=== PATIENT | male | born 1965 | race Caucasian/White ===

== ENCOUNTER 2020-12-06 13:40 | Inpatient (IN) | payer OTHER ==
[2020-12-06] MEDS ORDERED: SODIUM CHLORIDE 1,000 ML IV STA (14:11)
[2020-12-06 15:07] LABS: BASO % 1.4 % (0-2.0); EOS % 5.7 % (0-4.5); HEMATOCRIT 41.5 % (35.4-49); HEMOGLOBIN 14.4 GM/dL (11.7-16.9); LYMPH % 52.6 % (8-40); MCH 35.2 pg (25.7-33.7); MCHC 34.7 g/dl (32.0-35.9); MEAN CELL VOLUME 101.5 fl (80-96); MEAN PLT VOLUME 8.3 fl (7.5-11.1); MONO % 6.1 % (3.8-10.2); NEUT % 34.2 % (42.8-82.8); PLATELET COUNT 307 10^3/uL (134-434); RBC 4.09 M/mm3 (4.00-5.60); RDW 16.1 % (11.9-15.9); WHITE BLOOD COUNT 8.5 K/mm3 (4.0-10.0)
[2020-12-06 15:16] LABS: INR 0.96 (0.83-1.09); PROTHROMBIN TIME (PATIENT) 11.2 SEC (9.7-13.0)
[2020-12-06 15:18] LABS: ACTIVATED PTT 28.4 SECONDS (25.2-36.5)
[2020-12-06 15:24] LABS: CHLORIDE 107 mmol/L (98-107); SODIUM 143 mmol/L (136-145)
[2020-12-06 15:27] LABS: ALBUMIN 2.9 g/dl (3.4-5.0); ANION GAP 11 MMOL/L (8-16); BLOOD UREA NITROGEN 8.8 mg/dL (7-18); CALCIUM 8.9 mg/dL (8.5-10.1); CO2 25 mmol/L (21-32); GLUCOSE,RANDOM 145 mg/dL (74-106)
[2020-12-06 15:30] LABS: SGOT/AST 17 U/L (15-37); SGPT/ALT 23 U/L (13-61)
[2020-12-06 15:31] LABS: CREATININE 0.7 mg/dL (0.55-1.3)
[2020-12-06 15:32] LABS: BILIRUBIN,TOTAL 0.3 mg/dL (0.2-1); TOT PROT 7.1 g/dl (6.4-8.2)
[2020-12-06 15:33] LABS: ALK PHOS 119 U/L (45-117)
[2020-12-06] MEDS ORDERED: LORazepam 2 MG TABLET PO ONE (17:52)
[2020-12-06] MEDS ORDERED: LORazepam 1 MG TABLET ONE (17:59)
[2020-12-06] MEDS ORDERED: FOLIC ACID INJECTION - 1 MG, THIAMINE HCL 200 MG, MULTIVIT INJECTION ADULT 10 ML in SOD... IVPB ONE (19:36)
[2020-12-06] MEDS ORDERED: LORazepam 2 MG/ML SDV VIAL IVPUSH ONE (20:30)
[2020-12-06] MEDS ORDERED: LORazepam 2 MG/ML SDV VIAL ONE (21:07)
[2020-12-06] MEDS: INSULIN SLIDING SCALE (NOVOLOG) 1 VIAL SQ SCH (22:10)
[2020-12-06 23:33] LABS: URINE APPEARANCE CLEAR; URINE BILIRUBIN NEGATIVE (NEGATIVE); URINE COLOR YELLOW; URINE GLUCOSE (UA) TRACE (NEGATIVE); URINE KETONE NEGATIVE (NEGATIVE); URINE LEUK ESTERASE NEGATIVE (NEGATIVE); URINE NITRITE NEGATIVE (NEGATIVE); URINE PROTEIN NEGATIVE (NEGATIVE)
[2020-12-06 23:40] LABS: URINE AMPHETAMINES NEGATIVE (NEGATIVE); URINE BARBITURATES NEGATIVE (NEGATIVE)
[2020-12-06 23:41] LABS: COCAINE, UR NEGATIVE (NEGATIVE); METHADONE, UR NEGATIVE (NEGATIVE); PHENCYCLIDINE,URINE NEGATIVE (NEGATIVE)
[2020-12-06 23:45] LABS: OPIATES, URI NEGATIVE (NEGATIVE); URINE BENZODIAZEPINES POSITIVE (NEGATIVE)
[2020-12-07] MEDS ORDERED: LORazepam 2 MG/ML SDV VIAL ONE (00:30)
[2020-12-07] MEDS: LORazepam 2 MG/ML SDV VIAL IVPUSH PRN ×3 (00:33→10:11)
[2020-12-07 02:36] VITALS: BMI 27.4
[2020-12-07] MEDS: INSULIN SLIDING SCALE (NOVOLOG) 1 VIAL SQ SCH ×4 (06:09→21:23)
[2020-12-07 08:41] LABS: HEMATOCRIT 35.5 % (35.4-49); HEMOGLOBIN 12.5 GM/dL (11.7-16.9); MCH 35.6 pg (25.7-33.7); MCHC 35.2 g/dl (32.0-35.9); MEAN CELL VOLUME 101.3 fl (80-96); MEAN PLT VOLUME 8.7 fl (7.5-11.1); PLATELET COUNT 236 10^3/uL (134-434); RDW 16.3 % (11.9-15.9); WHITE BLOOD COUNT 7.5 K/mm3 (4.0-10.0)
[2020-12-07] MEDS ORDERED: PT OWN MED DRAWER 7, Y5N ONE (09:11)
[2020-12-07 09:12] LABS: ALBUMIN 2.5 g/dl (3.4-5.0)
[2020-12-07] MEDS: PANTOPRAZOLE 40 MG TABLET PO SCH (09:12)
[2020-12-07] MEDS: ENOXAPARIN NA (PORCINE) 40 MG/0.4 ML DISP.SYRIN SQ SCH (09:12)
[2020-12-07] MEDS: NICOTINE 14 MG/24 HOURS TOPICAL PATCH TD SCH (09:12)
[2020-12-07] MEDS: FOLIC ACID 1 MG TABLET (FP) PO SCH (09:12)
[2020-12-07] MEDS: THIAMINE HCL 100 MG TABLET (FP) PO SCH ×2 (09:12→21:09)
[2020-12-07] MEDS: ASPIRIN COATED 81 MG TABLET.EC PO SCH (09:12)
[2020-12-07 09:13] LABS: BLOOD UREA NITROGEN 10.3 mg/dL (7-18); CALCIUM 8.3 mg/dL (8.5-10.1); MAGNESIUM 1.3 mg/dL (1.8-2.4)
[2020-12-07] MEDS: LISINOPRIL 10 MG TABLET PO SCH (09:13)
[2020-12-07 09:16] LABS: CREATININE 0.7 mg/dL (0.55-1.3); PHOSPHOROUS 3.4 mg/dL (2.5-4.9)
[2020-12-07 09:17] LABS: BILIRUBIN,TOTAL 0.7 mg/dL (0.2-1); TOT PROT 5.9 g/dl (6.4-8.2)
[2020-12-07] MEDS ORDERED: MAGNESIUM SULF 50% (8.12 MEQ/2 ML-1 GM VIAL) IVPB ONE (09:31)
[2020-12-07] MEDS ORDERED: CHLORTHALIDONE 25 MG TABLET PO SCH (10:00)
[2020-12-07] MEDS ORDERED: chlordiazePOXIDE HCL 25 MG CAPSULE PO SCH (11:00)
[2020-12-07] MEDS ORDERED: chlordiazePOXIDE HCL 25 MG CAPSULE PO PRN (11:39)
[2020-12-07] MEDS ORDERED: LORazepam 1 MG TABLET PO PRN (12:04)
[2020-12-07] MEDS: LORazepam 1 MG TABLET PO SCH ×3 (13:00→22:09)
[2020-12-07] MEDS ORDERED: MELATONIN 5 MG TABLETS PO PRN (19:40)
[2020-12-07] MEDS: MAGNESIUM OXIDE 400 MG TABLET (FP) PO SCH (21:08)
[2020-12-08] MEDS: LORazepam 1 MG TABLET PO SCH (04:45)
[2020-12-08] MEDS: INSULIN SLIDING SCALE (NOVOLOG) 1 VIAL SQ SCH (06:03)
[2020-12-08 08:39] LABS: BASO % 1.8 % (0-2.0); EOS % 7.1 % (0-4.5); HEMATOCRIT 38.8 % (35.4-49); HEMOGLOBIN 13.5 GM/dL (11.7-16.9); LYMPH % 30.7 % (8-40); MCHC 34.9 g/dl (32.0-35.9); MEAN CELL VOLUME 100.3 fl (80-96); MEAN PLT VOLUME 8.4 fl (7.5-11.1); MONO % 7.9 % (3.8-10.2); NEUT % 52.5 % (42.8-82.8); PLATELET COUNT 237 10^3/uL (134-434); RBC 3.87 M/mm3 (4.00-5.60); RDW 16.4 % (11.9-15.9); WHITE BLOOD COUNT 7.2 K/mm3 (4.0-10.0)
[2020-12-08] MEDS: MAGNESIUM OXIDE 400 MG TABLET (FP) PO SCH (09:06)
[2020-12-08] MEDS: NICOTINE 14 MG/24 HOURS TOPICAL PATCH TD SCH (09:06)
[2020-12-08] MEDS: FOLIC ACID 1 MG TABLET (FP) PO SCH (09:06)
[2020-12-08] MEDS: ASPIRIN COATED 81 MG TABLET.EC PO SCH (09:06)
[2020-12-08] MEDS: THIAMINE HCL 100 MG TABLET (FP) PO SCH (09:06)
[2020-12-08] MEDS: PANTOPRAZOLE 40 MG TABLET PO SCH (09:06)
[2020-12-08] MEDS: ENOXAPARIN NA (PORCINE) 40 MG/0.4 ML DISP.SYRIN SQ SCH (09:06)
[2020-12-08] MEDS: LISINOPRIL 10 MG TABLET PO SCH (09:07)
[2020-12-08 09:09] VITALS: BP 120/85; PULSE 97; TEMP 98
[2020-12-08 09:19] LABS: BLOOD UREA NITROGEN 9.3 mg/dL (7-18)
[2020-12-08 09:20] LABS: MAGNESIUM 1.9 mg/dL (1.8-2.4)
[2020-12-08 09:21] LABS: PHOSPHOROUS 4.3 mg/dL (2.5-4.9)
[2020-12-08 09:22] LABS: CREATININE 0.7 mg/dL (0.55-1.3)
[2020-12-08 09:23] LABS: BILIRUBIN,TOTAL 1.1 mg/dL (0.2-1); TOT PROT 6.9 g/dl (6.4-8.2)
[2020-12-09] MEDS ORDERED: chlordiazePOXIDE HCL 25 MG CAPSULE PO SCH (05:00)
[2020-12-09] MEDS ORDERED: LORazepam 1 MG TABLET PO SCH (05:00)
[2020-12-10] MEDS ORDERED: LORazepam 0.5 MG TABLET PO PRN
[2020-12-10] MEDS ORDERED: chlordiazePOXIDE HCL 10 MG CAPSULE PO PRN
[2020-12-10] MEDS ORDERED: chlordiazePOXIDE HCL 10 MG CAPSULE PO SCH (05:00)
[2020-12-10] MEDS ORDERED: LORazepam 0.5 MG TABLET PO SCH (05:00)
[2020-12-11] MEDS ORDERED: chlordiazePOXIDE HCL 10 MG CAPSULE PO SCH (05:00)
[2020-12-11] MEDS ORDERED: LORazepam 0.5 MG TABLET PO ONE (05:00)
[2020-12-12] MEDS ORDERED: chlordiazePOXIDE HCL 10 MG CAPSULE PO ONE (05:00)
== END 2020-12-08 12:21 | disposition short-term general hospital (02) | DRG 775 ==
LOC: JER 13:40 → JERBED 16:57 → J6S 12-07 00:58
PROVIDERS: ATTEND Student in an Organized Health Care Education/Training Program
PROC: HZ2ZZZZ Detoxification Services for Substance Abuse Treatment (ICD-10-PCS; principal; 2020-12-06)
DX: F10.239 Alcohol dependence with withdrawal, unspecified (principal); I25.10 Atherosclerotic heart disease of native coronary artery without angina pectoris; E11.9 Type 2 diabetes mellitus without complications; E78.5 Hyperlipidemia, unspecified; F12.90 Cannabis use, unspecified, uncomplicated; F17.200 Nicotine dependence, unspecified, uncomplicated; R07.89 Other chest pain; M54.2 Cervicalgia; S09.90XA Unspecified injury of head, initial encounter; M54.9 Dorsalgia, unspecified; E66.9 Obesity, unspecified; Z68.27 Body mass index [BMI] 27.0-27.9, adult; I10 Essential (primary) hypertension; Z95.5 Presence of coronary angioplasty implant and graft; W18.39XA Other fall on same level, initial encounter; Y92.89 Other specified places as the place of occurrence of the external cause; Y99.8 Other external cause status
CPT/HCPCS: 36415; 70450-TC; 71045-TC-FY; 72125-TC; 80053; 80061; 80307; 81003; 82140; 82550; 82962; 83735; 84100; 84443; 84484; 85025; 85027; 85610; 85730; 86850; 86900; 86901; 93005; 93010; 93306-TC; 99285-25; C9803; U0003; U0005

== ENCOUNTER 2020-12-08 11:51 | Inpatient (IN) | payer OTHER ==
[2020-12-08] MEDS ORDERED: ONDANSETRON *ODT* 4 MG TABLET SL PRN (12:32)
[2020-12-08] MEDS ORDERED: MAG HYDROX/AL HYDROX/SIMETH 30 ML UNIT-DOSE CUP PO PRN (12:32)
[2020-12-08] MEDS ORDERED: MAGNESIUM CITRATE 300 ML BOTTLE PO PRN (12:32)
[2020-12-08] MEDS ORDERED: MENTHOL/PHENOL 1 EACH UD MM PRN (12:32)
[2020-12-08] MEDS ORDERED: METHOCARBAMOL 500 MG TABLET PO PRN (12:32)
[2020-12-08] MEDS ORDERED: ACETAMINOPHEN 325 MG TABLET (FP) PO PRN ×2 (12:32)
[2020-12-08] MEDS ORDERED: NICOTINE 10 MG CARTRIDGE (INHALER) IH PRN (12:32)
[2020-12-08] MEDS ORDERED: IBUPROFEN 400 MG TABLET (FP) PO PRN (12:32)
[2020-12-08] MEDS ORDERED: BISMUTH SUBSALICYLATE 262 MG/15 ML BTL PO PRN (12:32)
[2020-12-08] MEDS ORDERED: MAGNESIUM HYDROX 2400MG/30ML ORAL SUSPENSION 30 ML CUP PO PRN (12:32)
[2020-12-08 13:10] VITALS: BMI 27.2
[2020-12-08] MEDS: LORazepam 1 MG TABLET PO PRN ×2 (13:30→20:09)
[2020-12-08] MEDS: hydrOXYzine PAMOATE 25 MG CAPSULE (FP) PO SCH ×3 (15:50→22:16)
[2020-12-08] MEDS: PRENATAL VITAMINS W/ FOLIC ACID TABLET (FP) PO SCH (15:50)
[2020-12-08] MEDS: metFORMIN HCL 500 MG TABLET (FP) PO SCH (17:30)
[2020-12-08] MEDS: LORazepam 2 MG TABLET PO SCH ×2 (17:30→22:16)
[2020-12-08] MEDS: MELATONIN 5 MG TABLETS PO SCH (22:16)
[2020-12-08] MEDS: THIAMINE HCL 100 MG TABLET (FP) PO SCH (22:16)
[2020-12-09] MEDS: LORazepam 2 MG TABLET PO SCH ×2 (05:32→10:38)
[2020-12-09] MEDS: hydrOXYzine PAMOATE 25 MG CAPSULE (FP) PO SCH ×5 (05:32→21:55)
[2020-12-09] MEDS: metFORMIN HCL 500 MG TABLET (FP) PO SCH ×2 (06:08→17:25)
[2020-12-09] MEDS ORDERED: ASPIRIN COATED 81 MG TABLET.EC PO SCH (10:00)
[2020-12-09] MEDS ORDERED: metoPROLOL SUCCINATE 25 MG TAB.SR.24H (FP) PO SCH (10:00)
[2020-12-09] MEDS ORDERED: LISINOPRIL 10 MG TABLET PO SCH (10:00)
[2020-12-09] MEDS: PRENATAL VITAMINS W/ FOLIC ACID TABLET (FP) PO SCH (10:39)
[2020-12-09] MEDS ORDERED: LORazepam 0.5 MG TABLET PO PRN (11:00)
[2020-12-09] MEDS: LORazepam 0.5 MG TABLET PO SCH ×3 (11:15→22:04)
[2020-12-09 12:04] LABS: HEMATOCRIT 39.1 % (35.4-49); HEMOGLOBIN 13.5 GM/dL (11.7-16.9); MCH 35.4 pg (25.7-33.7); MCHC 34.6 g/dl (32.0-35.9); MEAN CELL VOLUME 102.5 fl (80-96); MEAN PLT VOLUME 8.9 fl (7.5-11.1); PLATELET COUNT 246 10^3/uL (134-434); RBC 3.81 M/mm3 (4.00-5.60); RDW 16.4 % (11.9-15.9)
[2020-12-09 12:28] LABS: ALBUMIN 3.3 g/dl (3.4-5.0)
[2020-12-09 12:29] LABS: BLOOD UREA NITROGEN 16.5 mg/dL (7-18); CALCIUM 9.1 mg/dL (8.5-10.1)
[2020-12-09 12:32] LABS: CREATININE 0.9 mg/dL (0.55-1.3)
[2020-12-09 12:33] LABS: BILIRUBIN,TOTAL 0.8 mg/dL (0.2-1); TOT PROT 7.3 g/dl (6.4-8.2)
[2020-12-09] MEDS: MELATONIN 5 MG TABLETS PO SCH (21:55)
[2020-12-09] MEDS: THIAMINE HCL 100 MG TABLET (FP) PO SCH (21:55)
[2020-12-10] MEDS ORDERED: LORazepam 1 MG TABLET PO SCH (05:00)
[2020-12-10] MEDS ORDERED: LORazepam 0.5 MG TABLET PO ONE (05:00)
[2020-12-10] MEDS: metFORMIN HCL 500 MG TABLET (FP) PO SCH (06:29)
[2020-12-10] MEDS: hydrOXYzine PAMOATE 25 MG CAPSULE (FP) PO SCH (06:29)
[2020-12-10 09:51] VITALS: BP 112/85; PULSE 105; TEMP 97.1
[2020-12-11] MEDS ORDERED: LORazepam 0.5 MG TABLET PO PRN
[2020-12-11] MEDS ORDERED: LORazepam 0.5 MG TABLET PO SCH (05:00)
[2020-12-12] MEDS ORDERED: LORazepam 0.5 MG TABLET PO ONE (05:00)
== END 2020-12-10 09:46 | disposition home or self-care (01) | DRG 775 ==
LOC: YASAS 11:51 → Y3N 13:15
PROVIDERS: ADMIT Allergy & Immunology; ATTEND Allergy & Immunology
PROC: HZ2ZZZZ Detoxification Services for Substance Abuse Treatment (ICD-10-PCS; principal; 2020-12-08)
DX: F10.230 Alcohol dependence with withdrawal, uncomplicated (principal); F17.210 Nicotine dependence, cigarettes, uncomplicated; I25.10 Atherosclerotic heart disease of native coronary artery without angina pectoris; I10 Essential (primary) hypertension; Z95.5 Presence of coronary angioplasty implant and graft; E11.9 Type 2 diabetes mellitus without complications; E78.5 Hyperlipidemia, unspecified; Z79.84 Long term (current) use of oral hypoglycemic drugs
CPT/HCPCS: 36415; 80053; 82962; 85027; 86780

== ENCOUNTER 2022-03-19 20:23 | Inpatient (IN) | payer OTHER ==
[2022-03-19 21:20] VITALS: BMI 30.8
[2022-03-19] MEDS ORDERED: LORazepam 2 MG/ML SDV VIAL IM ONE (21:23)
[2022-03-19] MEDS ORDERED: METOPROLOL TARTRATE 50 MG TABLET (FP) PO ONE (21:23)
[2022-03-19] MEDS ORDERED: IBUPROFEN 400 MG TABLET (FP) PO PRN (21:26)
[2022-03-19] MEDS ORDERED: DICYCLOMINE HCL 10 MG CAPSULE PO PRN (21:26)
[2022-03-19] MEDS ORDERED: METHOCARBAMOL 500 MG TABLET PO PRN (21:26)
[2022-03-19] MEDS ORDERED: LOPERAMIDE HCL 2 MG CAPSULE PO PRN (21:26)
[2022-03-19] MEDS ORDERED: MAGNESIUM HYDROX 2400MG/30ML ORAL SUSPENSION 30 ML CUP PO PRN (21:26)
[2022-03-19] MEDS ORDERED: NICOTINE POLACRILEX 2 MG GUM BUC PRN (21:26)
[2022-03-19] MEDS ORDERED: BISMUTH SUBSALICYLATE 524 MG/30 ML PO PRN (21:26)
[2022-03-19] MEDS ORDERED: IBUPROFEN 600 MG TABLET (FP) PO PRN (21:26)
[2022-03-19] MEDS ORDERED: ONDANSETRON *ODT* 4 MG TABLET SL PRN (21:26)
[2022-03-19] MEDS ORDERED: ACETAMINOPHEN 325 MG TABLET (FP) PO PRN ×2 (21:26)
[2022-03-19] MEDS ORDERED: POLYETHYLENE GLYCOL (HEALTHYLAX) 3350 17 GM PACKET PO PRN (21:26)
[2022-03-19] MEDS ORDERED: BENZOCAINE/MENTHOL (CHLORASEPTIC ) LOZENGE MM PRN (21:26)
[2022-03-19] MEDS ORDERED: MAG HYDROX/AL HYDROX/SIMETH 30 ML UNIT-DOSE CUP PO PRN (21:26)
[2022-03-19] MEDS ORDERED: guaiFENesin 200 MG/10 ML 10 ML UNIT-DOSE CUPS PO PRN (21:26)
[2022-03-19] MEDS ORDERED: P-EPHED 60MG/TRIPROLIDI 2.5MG TABLET PO PRN (21:26)
[2022-03-19] MEDS ORDERED: chlordiazePOXIDE HCL 25 MG CAPSULE PO ONE (21:29)
[2022-03-19] MEDS ORDERED: chlordiazePOXIDE HCL 25 MG CAPSULE PO PRN (21:29)
[2022-03-19] MEDS ORDERED: METOPROLOL TARTRATE 25 MG TABLET (FP) PO ONE (21:30)
[2022-03-19] MEDS ORDERED: METOPROLOL TARTRATE 25 MG TABLET (FP) ONE (21:31)
[2022-03-19] MEDS: levETIRAcetam 500 MG TABLET (FP) PO SCH (23:11)
[2022-03-20] MEDS: MELATONIN 5 MG TABLETS PO SCH ×2 (00:29→22:28)
[2022-03-20] MEDS: THIAMINE HCL 100 MG TABLET (FP) PO SCH ×2 (00:29→22:29)
[2022-03-20] MEDS: chlordiazePOXIDE HCL 25 MG CAPSULE PO SCH ×5 (00:49→22:29)
[2022-03-20] MEDS: hydrOXYzine PAMOATE 25 MG CAPSULE (FP) PO PRN ×2 (01:25→22:31)
[2022-03-20] MEDS: ASPIRIN COATED 81 MG TABLET.EC PO SCH (10:42)
[2022-03-20] MEDS: PRENATAL VITAMINS W/ FOLIC ACID TABLET (FP) PO SCH (10:42)
[2022-03-20] MEDS: metoPROLOL SUCCINATE 25 MG TAB.SR.24H (FP) PO SCH (10:42)
[2022-03-20] MEDS: levETIRAcetam 500 MG TABLET (FP) PO SCH ×2 (10:42→22:29)
[2022-03-20 12:07] LABS: HEMATOCRIT 44.6 % (35.4-49); HEMOGLOBIN 15.5 GM/dL (11.7-16.9); MCH 35.6 pg (25.7-33.7); MCHC 34.8 g/dl (32.0-35.9); MEAN CELL VOLUME 102.3 fl (80-96); MEAN PLT VOLUME 9.3 fl (7.5-11.1); PLATELET COUNT 248 10^3/uL (134-434); RBC 4.36 M/mm3 (4.00-5.60); RDW 12.6 % (11.9-15.9); WHITE BLOOD COUNT 8.3 K/mm3 (4.0-10.0)
[2022-03-20 13:50] LABS: CALCIUM 9.3 mg/dL (8.5-10.1)
[2022-03-20 13:51] LABS: ALBUMIN 3.5 g/dl (3.4-5.0); CREATININE 0.9 mg/dL (0.55-1.3)
[2022-03-20 13:52] LABS: TOT PROT 6.8 g/dl (6.4-8.2)
[2022-03-20 13:53] LABS: BILIRUBIN,TOTAL 0.4 mg/dL (0.2-1)
[2022-03-21] MEDS: chlordiazePOXIDE HCL 25 MG CAPSULE PO SCH ×4 (05:38→22:28)
[2022-03-21] MEDS: metFORMIN HCL 500 MG TABLET (FP) PO SCH ×2 (07:40→16:57)
[2022-03-21] MEDS: PRENATAL VITAMINS W/ FOLIC ACID TABLET (FP) PO SCH (10:07)
[2022-03-21] MEDS: ASPIRIN COATED 81 MG TABLET.EC PO SCH (10:08)
[2022-03-21] MEDS: metoPROLOL SUCCINATE 25 MG TAB.SR.24H (FP) PO SCH (10:08)
[2022-03-21] MEDS: levETIRAcetam 500 MG TABLET (FP) PO SCH ×2 (10:09→22:28)
[2022-03-21] MEDS: THIAMINE HCL 100 MG TABLET (FP) PO SCH (22:28)
[2022-03-21] MEDS: MELATONIN 5 MG TABLETS PO SCH (22:28)
[2022-03-22] MEDS ORDERED: chlordiazePOXIDE HCL 10 MG CAPSULE PO PRN
[2022-03-22] MEDS: chlordiazePOXIDE HCL 10 MG CAPSULE PO SCH ×4 (06:07→22:07)
[2022-03-22] MEDS: metFORMIN HCL 500 MG TABLET (FP) PO SCH ×2 (06:13→17:11)
[2022-03-22] MEDS: ASPIRIN COATED 81 MG TABLET.EC PO SCH (10:08)
[2022-03-22] MEDS: levETIRAcetam 500 MG TABLET (FP) PO SCH (10:08)
[2022-03-22] MEDS: PRENATAL VITAMINS W/ FOLIC ACID TABLET (FP) PO SCH (10:08)
[2022-03-22] MEDS: metoPROLOL SUCCINATE 25 MG TAB.SR.24H (FP) PO SCH (10:08)
[2022-03-22] MEDS: hydrOXYzine PAMOATE 25 MG CAPSULE (FP) PO PRN (10:09)
[2022-03-22] MEDS: NICOTINE 10 MG CARTRIDGE (INHALER) IH PRN ×3 (14:02→22:16)
[2022-03-22] MEDS: INSULIN SLIDING SCALE (NOVOLOG) 1 VIAL SQ SCH ×2 (17:11→22:07)
[2022-03-22] MEDS: MELATONIN 5 MG TABLETS PO SCH (22:06)
[2022-03-22] MEDS: THIAMINE HCL 100 MG TABLET (FP) PO SCH (22:06)
[2022-03-23] MEDS: chlordiazePOXIDE HCL 10 MG CAPSULE PO SCH ×2 (05:55→17:52)
[2022-03-23] MEDS: NICOTINE 10 MG CARTRIDGE (INHALER) IH PRN ×3 (06:02→17:14)
[2022-03-23] MEDS: INSULIN SLIDING SCALE (NOVOLOG) 1 VIAL SQ SCH ×4 (06:14→22:26)
[2022-03-23] MEDS: metFORMIN HCL 500 MG TABLET (FP) PO SCH ×2 (06:14→17:51)
[2022-03-23] MEDS ORDERED: LISINOPRIL 10 MG TABLET PO SCH (10:00)
[2022-03-23] MEDS: PRENATAL VITAMINS W/ FOLIC ACID TABLET (FP) PO SCH (10:02)
[2022-03-23] MEDS: metoPROLOL SUCCINATE 25 MG TAB.SR.24H (FP) PO SCH (10:02)
[2022-03-23] MEDS: ASPIRIN COATED 81 MG TABLET.EC PO SCH (10:02)
[2022-03-23] MEDS: MELATONIN 5 MG TABLETS PO SCH (22:09)
[2022-03-23] MEDS: THIAMINE HCL 100 MG TABLET (FP) PO SCH (22:09)
[2022-03-24] MEDS ORDERED: chlordiazePOXIDE HCL 10 MG CAPSULE PO ONE (05:00)
[2022-03-24] MEDS: NICOTINE 10 MG CARTRIDGE (INHALER) IH PRN (05:52)
[2022-03-24] MEDS: metFORMIN HCL 500 MG TABLET (FP) PO SCH (07:31)
[2022-03-24] MEDS: INSULIN SLIDING SCALE (NOVOLOG) 1 VIAL SQ SCH (07:33)
[2022-03-24 10:47] VITALS: BP 145/88; PULSE 71; RESP 16; TEMP 97
== END 2022-03-24 09:47 | disposition home or self-care (01) | DRG 775 ==
LOC: YASAS 20:23 → Y3N 22:01
PROVIDERS: ADMIT Allergy & Immunology; ATTEND Family Medicine
PROC: HZ2ZZZZ Detoxification Services for Substance Abuse Treatment (ICD-10-PCS; principal; 2022-03-19)
DX: F10.230 Alcohol dependence with withdrawal, uncomplicated (principal); F17.210 Nicotine dependence, cigarettes, uncomplicated; F19.24 Other psychoactive substance dependence with psychoactive substance-induced mood disorder; I25.10 Atherosclerotic heart disease of native coronary artery without angina pectoris; I10 Essential (primary) hypertension; Z95.5 Presence of coronary angioplasty implant and graft; E78.5 Hyperlipidemia, unspecified; E11.65 Type 2 diabetes mellitus with hyperglycemia; Z79.84 Long term (current) use of oral hypoglycemic drugs; E66.9 Obesity, unspecified; Z68.30 Body mass index [BMI] 30.0-30.9, adult
CPT/HCPCS: 36415; 80053; 82962; 85027; 86780; 93005; 93010; C9803-CS; U0003; U0005